=== PATIENT | female | born 1990 | race Caucasian/White ===

== ENCOUNTER 2020-12-26 07:34 | Inpatient (IN) | payer MEDICAID ==
[~2020-12-26] VITALS: Ht 170.2 cm; Wt 108.4 kg
[2020-12-26] MEDS ORDERED: METHYLERGONOVINE MALEATE 0.2 MG/ML IM PRN (08:30)
[2020-12-26] MEDS ORDERED: DEXT 5%/LR + PITOCIN 20UNITS/L 1,000 ML IV SCH ×2 (08:30→16:15)
[2020-12-26] MEDS ORDERED: PNV1TABL50 MT (08:38)
[2020-12-26] MEDS ORDERED: CEFAZOLIN SODIUM 1000MG/VIAL ONE (09:35)
[2020-12-26] MEDS ORDERED: MORPHINE SULFATE/PF 1MG/ML 10ML AMP ONE (09:35)
[2020-12-26] MEDS ORDERED: OXYTOCIN 10 UNITS/ML 1ML ONE (09:35)
[2020-12-26] MEDS ORDERED: FENTANYL CITRATE/PF 50MCG/ML 2ML VIAL ONE (09:35)
[2020-12-26] MEDS ORDERED: ONDANSETRON HCL 4MG/2ML INJ ONE (09:35)
[2020-12-26] MEDS ORDERED: EPHEDRINE SULFATE 50MG/ML VIAL ONE (09:35)
[2020-12-26] MEDS ORDERED: DIPHENHYDRAMINE 50MG/ML VIAL ONE (09:35)
[2020-12-26] MEDS ORDERED: PHENYLEPHRINE HCL 10 MG/ML 1ML (IV VIAL) IV ONE (09:35)
[2020-12-26] MEDS ORDERED: SODIUM CHLORIDE 0.9% 10ML VIAL ONE (09:37)
[2020-12-26] MEDS ORDERED: CITRIC ACID/SODIUM CITRATE SOLN 30ML UDC PO NR (10:00)
[2020-12-26 10:01] LABS: BASOPHILS % 0.4 % (0.0-2.0); EOSINOPHILS % 0.6 % (0.0-5.0); HEMATOCRIT. 37.5 % (36.0-48.0); HEMOGLOBIN. 12.6 g/dL (12.0-16.0); LYMPHOCYTES % 25.7 % (20.0-50.0); MEAN CORPUSCULAR HEMOGLOBIN 29.8 pg (28.0-32.0); MEAN CORPUSCULAR VOLUME 88.7 fL (81.0-99.0); MEAN PLATELET VOLUME 8.9 fl (7.4-10.4); MONOCYTES % 6.6 % (2.0-8.0); NEUTROPHILS % 66.7 % (40.0-76.0); PLATELET 238 x1000/uL (130-400); RED BLOOD CELL COUNT 4.22 mill/uL (4.2-5.4); RED CELL DISTRIBUTION WIDTH 14.9 % (11.6-14.6)
[2020-12-26 10:05] LABS: CLARITY URINE CLEAR (CLEAR); COLOR URINE YELLOW (YELLOW); KETONES URINE 1+ (NEGATIVE); LEUKOCYTE ESTERASE URINE NEGATIVE (NEGATIVE); NITRITE URINE NEGATIVE (NEGATIVE); OCCULT BLOOD URINE NEGATIVE (NEGATIVE); PROTEIN URINE TRACE (NEGATIVE); SPECIFIC GRAVITY URINE 1.018 (1.005-1.030); UROBILINOGEN URINE 0.2 E.U./dL (0.2-1.0)
[2020-12-26 10:11] LABS: PARTIAL THROMBOPLASTIN TIME 28.2 sec (23.4-31.0); PROTHROMBIN TIME 10.3 sec (9.6-11.0)
[2020-12-26] MEDS: LACTATED RINGERS 1,000 ML IV SCH ×3 (10:25→11:58)
[2020-12-26 10:26] LABS: *AMPHETAMINES SCREEN URINE NEGATIVE (NEGATIVE); *BARBITURATES SCREEN URINE NEGATIVE (NEGATIVE); *BENZODIAZEPINES SCREEN URINE NEGATIVE (NEGATIVE); *COCAINE SCREEN URINE NEGATIVE (NEGATIVE)
[2020-12-26 10:27] LABS: CANNABINOID URINE SCREEN NEGATIVE (NEGATIVE); METHADONE URINE SCREEN NEGATIVE (NEGATIVE); OPIATES URINE SCREEN NEGATIVE (NEGATIVE); PHENCYCLIDINE URINE SCREEN NEGATIVE (NEGATIVE)
[2020-12-26 11:45] LABS: HEPATITIS B SURFACE ANTIGEN NEGATIVE
[2020-12-26] MEDS ORDERED: KETOROLAC 60MG/2ML VIAL IM ONE (12:49)
[2020-12-26] MEDS ORDERED: NALOXONE HCL 0.4 MG/ML 1ML VIAL IV PRN (13:00)
[2020-12-26] MEDS ORDERED: BUTORPHANOL TARTRATE 2 MG/ML VIAL IV PRN (13:00)
[2020-12-26] MEDS ORDERED: DIPHENHYDRAMINE 50MG/ML VIAL IV PRN (13:00)
[2020-12-26] MEDS ORDERED: DEXT 5%/LR + PITOCIN 20UNITS/L 0 ML IV ONE (14:08)
[2020-12-26 16:00] VITALS: BP_SYST 111; BP_SYST 112; BP_DIAS 53; BP_DIAS 60
[2020-12-26] MEDS: KETOROLAC 30MG/ML VIAL IV SCH (16:00)
[2020-12-26] MEDS ORDERED: BISACODYL 10MG SUPP PR PRN (16:15)
[2020-12-26] MEDS ORDERED: LANOLIN OINT 7GM TUBE TOP PRN (16:15)
[2020-12-26] MEDS ORDERED: ACETAMINOPHEN WITH CODEINE 300/30MG TABLET PO PRN (16:15)
[2020-12-26] MEDS ORDERED: RHO(D) IMMUNE GLOBULIN 300 MCG/SYR IM PRN (16:15)
[2020-12-26] MEDS ORDERED: ONDANSETRON HCL 4MG/2ML INJ IV PRN (16:15)
[2020-12-26 20:00] VITALS: BP 105/50
[2020-12-26] MEDS ORDERED: DIPHENHYDRAMINE 25MG CAPSULE PO PRN (21:00)
[2020-12-26 23:25] VITALS: BP 110/52
[2020-12-27 03:15] VITALS: BP 106/59
[2020-12-27] MEDS ORDERED: KETOROLAC 30MG/ML VIAL IV SCH (03:15)
[2020-12-27] MEDS: KETOROLAC 30MG/ML VIAL IV SCH (03:21)
[2020-12-27 07:43] VITALS: BP 110/54
[2020-12-27 07:56] LABS: BASOPHILS % 0.6 % (0.0-2.0); EOSINOPHILS % 1.1 % (0.0-5.0); HEMATOCRIT. 33.2 % (36.0-48.0); HEMOGLOBIN. 11.1 g/dL (12.0-16.0); LYMPHOCYTES % 10.3 % (20.0-50.0); MEAN CORPUSCULAR HEMOGLOBIN 29.4 pg (28.0-32.0); MEAN CORPUSCULAR VOLUME 88.3 fL (81.0-99.0); MEAN PLATELET VOLUME 8.2 fl (7.4-10.4); MONOCYTES % 4.8 % (2.0-8.0); NEUTROPHILS % 83.2 % (40.0-76.0); PLATELET 222 x1000/uL (130-400); RED BLOOD CELL COUNT 3.76 mill/uL (4.2-5.4); RED CELL DISTRIBUTION WIDTH 14.9 % (11.6-14.6)
[2020-12-27] MEDS: PRENATAL VIT/FE FUMARATE/FA TABLET PO SCH (08:55)
[2020-12-27] MEDS: IBUPROFEN 400MG TABLET PO PRN (13:43)
[2020-12-27 15:57] VITALS: BP 101/56
[2020-12-27 20:00] VITALS: BP 101/58
[2020-12-27] MEDS: DOCUSATE SODIUM 100MG CAPSULE PO SCH (20:44)
[2020-12-28 04:00] VITALS: BP 105/57
[2020-12-28] MEDS: IBUPROFEN 400MG TABLET PO PRN (05:10)
[2020-12-28 08:30] VITALS: BP 99/54
[2020-12-28] MEDS: PRENATAL VIT/FE FUMARATE/FA TABLET PO SCH (08:47)
[2020-12-28 15:23] VITALS: BP 113/60
[2020-12-28] MEDS: HYDROCODONE/ACETAMINOPHEN 5/325MG TABLET PO PRN (19:57)
[2020-12-28] MEDS: DOCUSATE SODIUM 100MG CAPSULE PO SCH (19:57)
[2020-12-28 20:10] VITALS: BP 104/58
[2020-12-29 00:01] VITALS: BP 111/71
[2020-12-29] MEDS: HYDROCODONE/ACETAMINOPHEN 5/325MG TABLET PO PRN (02:43)
[2020-12-29 04:00] VITALS: BP 116/54
[2020-12-29] MEDS ORDERED: IBUP-2030 MT (07:31)
[2020-12-29] MEDS: PRENATAL VIT/FE FUMARATE/FA TABLET PO SCH (08:25)
[2020-12-29 08:34] VITALS: BP 113/59
== END 2020-12-29 12:45 | disposition home or self-care (01) | DRG 540 ==
LOC: 8 EST LDRP 07:34 → 8EST 15:42
PROVIDERS: ADMIT Obstetrics & Gynecology; ATTEND Obstetrics & Gynecology
PROC: 10D00Z1 Extraction of Products of Conception, Low, Open Approach (ICD-10-PCS; principal; 2020-12-26)
PROC: 3E0234Z Introduction of Serum, Toxoid and Vaccine into Muscle, Percutaneous Approach (ICD-10-PCS; 2020-12-27)
DX: O32.1XX0 Maternal care for breech presentation, not applicable or unspecified (principal); D62 Acute posthemorrhagic anemia; O99.02 Anemia complicating childbirth; Z20.822 Contact with and (suspected) exposure to COVID-19; O26.893 Other specified pregnancy related conditions, third trimester; Z37.0 Single live birth; Z3A.39 39 weeks gestation of pregnancy; Z67.11 Type A blood, Rh negative
CPT/HCPCS: 36415; 76815; 80305; 81003; 85025; 86592; 86703; 86762; 86850; 86886; 86900; 87340; 87426; 88307; 90384; 99281; J0690; J1200; J1885; J2274; J2370; J2405; J2590; J3010; J3490; J7120